=== PATIENT | female | born 1975 | race Caucasian/White ===

== ENCOUNTER 2017-12-14 11:30 | Outpatient (CLI) | END 2017-12-14 14:50 | disposition home or self-care (01) ==

== ENCOUNTER 2018-02-08 11:12 | Outpatient (CLI) | END 2018-02-08 12:26 | disposition home or self-care (01) ==

== ENCOUNTER 2018-02-19 00:35 | Inpatient (IN) | END 2018-02-21 15:02 | disposition home or self-care (01) | DRG 775 ==